=== PATIENT | male | born 1960 | race Caucasian/White ===

== ENCOUNTER 2017-09-12 06:36 | Outpatient (CLI) | payer OTHER ==
[~2017-09-12 06:36] MED LIST: GABAPENTIN600 MG PO; GLUCOPHAGE XR500 MG; MELOXICAM15 MG PO; METHOCARBAMOL500 MG PO
== END 2017-09-12 06:43 | disposition home or self-care (01) ==
LOC: LAB 06:36
DX: R79.1 Abnormal coagulation profile (principal)

== ENCOUNTER 2017-09-27 09:20 | Outpatient (CLI) | payer OTHER ==
[2017-10-08] MEDS ORDERED: GABAPENTIN100 MG PO (11:21)
[2017-10-08] MEDS ORDERED: GABAPENTIN600 MG PO (11:21)
[2017-10-08] MEDS ORDERED: TORADOL60 MG IM (11:21)
== END 2017-09-27 09:33 | disposition home or self-care (01) ==
LOC: RAD 09:20
DX: M25.561 Pain in right knee (principal); M25.562 Pain in left knee

== ENCOUNTER 2018-05-06 06:43 | Outpatient (CLI) | payer OTHER ==
[~2018-05-06 06:43] MED LIST changes: +GABAPENTIN100 MG PO; +TORADOL60 MG IM
== END 2018-05-06 06:48 | disposition home or self-care (01) ==
LOC: LAB 06:43
DX: R05 Cough (principal); H92.09 Otalgia, unspecified ear; E08.9 Diabetes mellitus due to underlying condition without complications

== ENCOUNTER → 2018-08-01 | Outpatient (CLI) | payer OTHER | END | disposition home or self-care (01) | LOC: LAB 07:46 | DX: E08.00 Diabetes mellitus due to underlying condition with hyperosmolarity without nonketotic hyperglycemic-hyperosmolar coma (NKHHC) (principal) ==

== ENCOUNTER → 2019-03-27 07:19 | Outpatient (CLI) | payer OTHER | END | disposition home or self-care (01) | LOC: LAB 07:19 | DX: N40.0 Benign prostatic hyperplasia without lower urinary tract symptoms (principal); R35.1 Nocturia ==

== ENCOUNTER 2020-03-09 10:42 | Outpatient (CLI) | payer OTHER | END 2020-03-09 10:52 | disposition home or self-care (01) | LOC: RAD 10:42 | PROVIDERS: ATTEND Internal Medicine | DX: M54.40 Lumbago with sciatica, unspecified side (principal) ==

== ENCOUNTER 2020-03-25 13:02 | Outpatient (CLI) | payer OTHER | END 2020-03-25 15:12 | disposition home or self-care (01) | LOC: RAD 13:02 | PROVIDERS: ATTEND Internal Medicine | DX: M25.562 Pain in left knee (principal); M25.561 Pain in right knee ==

== ENCOUNTER 2020-06-25 11:01 | Outpatient (CLI) | payer OTHER | END 2020-06-25 11:11 | disposition home or self-care (01) | LOC: RAD 11:01 → TOM 11:15 | PROVIDERS: ATTEND Internal Medicine Cardiovascular Disease | DX: J01.41 Acute recurrent pansinusitis (principal); G40.919 Epilepsy, unspecified, intractable, without status epilepticus; I10 Essential (primary) hypertension ==

== ENCOUNTER → 2020-12-28 | Outpatient (CLI) | payer OTHER | END | disposition home or self-care (01) | LOC: MRI 09:56 | PROVIDERS: ATTEND Internal Medicine Nephrology | DX: M75.122 Complete rotator cuff tear or rupture of left shoulder, not specified as traumatic (principal) | CPT/HCPCS: 73221 ==

== ENCOUNTER 2022-04-18 11:13 | Outpatient (CLI) | payer OTHER | END 2022-04-18 11:14 | disposition home or self-care (01) | LOC: TOM 11:13 | DX: I67.82 Cerebral ischemia (principal); I67.89 Other cerebrovascular disease ==

== ENCOUNTER 2022-06-20 10:13 | Outpatient (CLI) | payer OTHER | END 2022-06-20 10:15 | disposition home or self-care (01) | LOC: RAD 10:13 | PROVIDERS: ATTEND Internal Medicine | DX: M25.561 Pain in right knee (principal); M25.562 Pain in left knee ==

== ENCOUNTER 2023-01-26 11:25 | Emergency (ER) | payer OTHER ==
[~2023-01-26] VITALS: Ht 182.9 cm; Wt 117.0 kg
[2023-01-26] MEDS ORDERED: HORIZANT300 MG PO (13:04)
[2023-01-26] MEDS ORDERED: METFORMIN HCL500 M3 PO (13:04)
[2023-01-26] MEDS ORDERED: LAMICTAL150 M1 PO (13:05)
[2023-01-26] MEDS ORDERED: TRAZODONE HCL50 MG PO (13:05)
[2023-01-26] MEDS ORDERED: CYMBALTA60 MG PO (13:05)
[2023-01-26] MEDS ORDERED: LIPITOR20 MG PO (13:05)
[2023-01-26] MEDS ORDERED: DEPAKOTE ER500 MG PO (13:05)
[2023-01-26] MEDS ORDERED: CLONAZEPAM0.5 M1 PO (13:06)
[2023-01-26] MEDS ORDERED: RESTORIL15 M1 PO (13:06)
[2023-01-26] MEDS ORDERED: XYZAL5 MG PO (13:06)
== END 2023-01-26 17:32 | disposition home or self-care (01) ==
LOC: ER 11:25
DX: S61.411A Laceration without foreign body of right hand, initial encounter (principal); W18.30XA Fall on same level, unspecified, initial encounter; Y93.01 Activity, walking, marching and hiking; Y92.480 Sidewalk as the place of occurrence of the external cause; Y99.9 Unspecified external cause status; S09.93XA Unspecified injury of face, initial encounter

== ENCOUNTER 2023-02-01 10:07 | Emergency (ER) | payer OTHER ==
[~2023-02-01] VITALS: Ht 182.9 cm; Wt 117.0 kg
[~2023-02-01 10:07] MED LIST changes: +CLONAZEPAM0.5 M1 PO; +CYMBALTA60 MG PO; +DEPAKOTE ER500 MG PO; +HORIZANT300 MG PO; +LAMICTAL150 M1 PO; +LIPITOR20 MG PO; +METFORMIN HCL500 M3 PO; +RESTORIL15 M1 PO; +TRAZODONE HCL50 MG PO; +XYZAL5 MG PO
[2023-02-01] MEDS ORDERED: LEVOFLOXACIN500 MG PO (12:23)
== END 2023-02-01 13:10 | disposition home or self-care (01) ==
LOC: ER 10:07
DX: L03.113 Cellulitis of right upper limb (principal); E11.9 Type 2 diabetes mellitus without complications; Z79.84 Long term (current) use of oral hypoglycemic drugs; I10 Essential (primary) hypertension

== ENCOUNTER 2023-02-18 07:05 | Emergency (ER) | payer OTHER ==
[~2023-02-18] VITALS: Ht 188 cm; Wt 108.0 kg
[~2023-02-18 07:05] MED LIST changes: +LEVOFLOXACIN500 MG PO
== END 2023-02-18 12:18 | disposition home or self-care (01) ==
LOC: ER 07:05
DX: R51.9 Headache, unspecified (principal)
CPT/HCPCS: 36415; 70450; 96372; 99284; J1885; J2765

== ENCOUNTER 2023-08-02 12:29 | Outpatient (CLI) | payer OTHER ==
[~2023-08-02 12:29] MED LIST changes: +NABUMETONE750 MG PO; +VOLTAREN ARTHRI20 GM TOP
== END 2023-08-02 12:43 | disposition home or self-care (01) ==
LOC: RAD 12:29
PROVIDERS: ATTEND Internal Medicine
DX: M25.511 Pain in right shoulder (principal)

== ENCOUNTER 2023-10-30 07:04 | Outpatient (CLI) | payer OTHER | END 2023-10-30 07:13 | disposition home or self-care (01) | LOC: TOM 07:04 | PROVIDERS: ATTEND Internal Medicine Gastroenterology | DX: Z86.010 Personal history of colon polyps (principal) ==

== ENCOUNTER 2024-05-01 10:57 | Outpatient (CLI) | payer OTHER | END 2024-05-01 11:03 | disposition home or self-care (01) | LOC: RAD 10:57 | PROVIDERS: ATTEND Ophthalmology | DX: Z01.811 Encounter for preprocedural respiratory examination (principal); I10 Essential (primary) hypertension ==

== ENCOUNTER 2025-03-08 18:59 | Emergency (ER) | payer OTHER ==
[~2025-03-08] VITALS: Ht 175.3 cm; Wt 103.4 kg
[2025-03-09] MEDS ORDERED: NORFLEX100MG PO (15:01)
[2025-03-09] MEDS ORDERED: DICLOFENAC SODI75 MG PO (15:01)
== END 2025-03-08 20:17 | disposition left against medical advice (07) ==
LOC: ER 18:59
DX: R51.9 Headache, unspecified (principal)

== ENCOUNTER 2025-03-09 09:41 | Emergency (ER) | payer OTHER ==
[~2025-03-09] VITALS: Ht 177.8 cm; Wt 117.5 kg
[2025-03-09] MEDS ORDERED: DEXAMETHASONE SODIUM PHOSPHATE 4 MG/ML VIAL IM ONE (15:00)
[2025-03-09] MEDS ORDERED: KETOROLAC TROMETHAMINE 60 MG VIAL IM ONE (15:00)
[2025-03-09] MEDS ORDERED: NORFLEX100MG PO (15:01)
[2025-03-09] MEDS ORDERED: DICLOFENAC SODI75 MG PO (15:01)
== END 2025-03-09 15:12 | disposition home or self-care (01) ==
LOC: ER 09:41
DX: M62.838 Other muscle spasm (principal); M54.50 Low back pain, unspecified; R51.9 Headache, unspecified; E11.9 Type 2 diabetes mellitus without complications; Z79.84 Long term (current) use of oral hypoglycemic drugs; I10 Essential (primary) hypertension; S00.93XA Contusion of unspecified part of head, initial encounter; V74.9XXA Unspecified occupant of bus injured in collision with heavy transport vehicle or bus in traffic accident, initial encounter; Y93.89 Activity, other specified; Y92.89 Other specified places as the place of occurrence of the external cause; Y99.9 Unspecified external cause status